=== PATIENT | female | born 1965 | race Caucasian/White ===

== ENCOUNTER → 2020-12-11 | Outpatient (CLI) | payer SELFPAY ==
--- NOTE | 2020-12-11 13:49 | Diagnostic Imaging Report ---
INDICATION: Routine screening. COMPARISON: 04/12/2018 and 04/08/2017. TECHNIQUE: 2D and 3D bilateral screening mammography was performed with CAD. FINDINGS: Both breasts are heterogeneously dense, limiting the sensitivity of mammography. There are intraparenchymal lymph nodes in the upper and outer aspect of the right breast. There are benign calcifications present. No spiculated mass or malignant-appearing microcalcifications are seen. The axillae are unremarkable. IMPRESSION: No mammographic features suspicious for malignancy are identified. ACR BI-RADS Category 2: Benign findings. Result letter will be mailed to the patient. Note: At least 10% of breast cancer is not imaged by mammography. Dictated by: Dictated on workstation # [id number]
== END ==
LOC: RAD 10:00
PROVIDERS: ATTEND Surgery
DX: Z12.31 Encounter for screening mammogram for malignant neoplasm of breast (principal)
CPT/HCPCS: 77063; 77067

== ENCOUNTER → 2020-12-18 | Outpatient (CLI) | payer OTHER | LOC: CARD 11:00 | PROVIDERS: ATTEND Internal Medicine Cardiovascular Disease | DX: I08.0 Rheumatic disorders of both mitral and aortic valves (principal) | CPT/HCPCS: 93306 ==

== ENCOUNTER → 2021-12-02 | Outpatient (CLI) | payer BC, OTHER | LOC: CARD 14:00 | PROVIDERS: ATTEND Physician Assistant | DX: I11.9 Hypertensive heart disease without heart failure (principal); I08.0 Rheumatic disorders of both mitral and aortic valves; I25.10 Atherosclerotic heart disease of native coronary artery without angina pectoris | CPT/HCPCS: 93306 ==

== ENCOUNTER → 2022-06-06 | Outpatient (CLI) | payer BC ==
--- NOTE | 2022-06-06 17:40 | Diagnostic Imaging Report ---
INDICATION: Routine screening. COMPARISON: Made with prior mammograms from 12/11/2020 and 04/12/2018. EXAMINATION: 2D and 3D bilateral screening mammography was performed with CAD. The current study was also evaluated with a Computer Aided Detection (CAD) system. FINDINGS: Both breasts are heterogeneously dense, limiting the sensitivity of mammography. The parenchymal pattern is stable. No mass or malignant-appearing microcalcification is seen. Axillae are unremarkable. IMPRESSION: No mammographic features suspicious for malignancy are identified. ACR BI-RADS Category 1: Negative. Result letter will be mailed to the patient. Note: At least 10% of breast cancer is not imaged by mammography. Dictated by: Dictated on workstation # [id number]
== END ==
LOC: RAD 11:30
PROVIDERS: ATTEND Surgery
DX: Z12.31 Encounter for screening mammogram for malignant neoplasm of breast (principal)
CPT/HCPCS: 77063; 77067

== ENCOUNTER → 2022-08-08 | Outpatient (CLI) | payer BC ==
--- NOTE | 2022-08-08 12:58 | Diagnostic Imaging Report ---
EXAMINATION: Right foot radiographs, 3 views. COMPARISON: None. HISTORY: 56-year-old female, right foot pain particularly of the first toe. FINDINGS: There is a nondisplaced oblique intra-articular fracture of the base of the first proximal phalanx. There is no offset of the articulating surface. There is no subluxation or dislocation. 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 No additional acute fracture is present. There is an os navicularis. The joint spaces are well preserved. IMPRESSION: 1. Nondisplaced intra-articular fracture of the base of the first proximal phalanx without offset of the articulating surface. Dictated by: Dictated on workstation # [id number]
== END ==
LOC: RAD 12:04
PROVIDERS: ATTEND Family Medicine
DX: S92.911A Unspecified fracture of right toe(s), initial encounter for closed fracture (principal); X58.XXXA Exposure to other specified factors, initial encounter
CPT/HCPCS: 73630

== ENCOUNTER → 2022-09-09 | Outpatient (CLI) | payer BC ==
--- NOTE | 2022-09-09 12:10 | Diagnostic Imaging Report ---
INDICATION: Great toe pain EXAMINATION: Right great toe 09/09/2022 FINDINGS: 3 views of the great toe demonstrate an intra-articular fracture at the base of the proximal 1st phalanx. Adjacent narrowing and spurring consistent with osteoarthritic changes. Remaining osseous structures intact. No dislocations. IMPRESSION: 1. Nondisplaced intra-articular fracture of the right proximal 1st phalanx. Findings stable from previous imaging with no changes in interval healing. Dictated by: Dictated on workstation # [id number]
== END ==
LOC: RAD 10:31
PROVIDERS: ATTEND Family Medicine
DX: S92.414A Nondisplaced fracture of proximal phalanx of right great toe, initial encounter for closed fracture (principal); X58.XXXA Exposure to other specified factors, initial encounter
CPT/HCPCS: 73660

== ENCOUNTER → 2022-10-15 | Outpatient (CLI) | payer BC ==
--- NOTE | 2022-10-15 16:29 | Diagnostic Imaging Report ---
INDICATION: Right great toe fracture follow-up. EXAMINATION: AP, oblique and lateral views of the right great toe were obtained. COMPARISON: 09/09/2022. FINDINGS: Compared to the prior study, the fracture of the base of the 1st proximal phalanx appears in unchanged alignment with persistent lucency. There is no dislocation. There is no new fracture seen elsewhere. IMPRESSION: Stable alignment of fracture of 1st proximal phalanx with persistent lucency. Dictated by: Dictated on workstation # [id number]
== END ==
LOC: RAD 12:57
PROVIDERS: ATTEND Family Medicine
DX: S92.424 Nondisplaced fracture of distal phalanx of right great toe (principal)
CPT/HCPCS: 73660

== ENCOUNTER → 2022-12-25 | Outpatient (CLI) | payer BC | LOC: CARD 08:30 | PROVIDERS: ATTEND Internal Medicine Cardiovascular Disease | DX: I08.0 Rheumatic disorders of both mitral and aortic valves (principal) | CPT/HCPCS: 93306 ==